=== PATIENT | female | born 1955 | race African-American/Black ===

== ENCOUNTER 2020-04-05 12:51 | Emergency (ER) | payer OTHER, SELFPAY ==
[~2020-04-05] VITALS: Ht 160 cm; Wt 85.0 kg
[2020-04-05] MEDS ORDERED: KETOROLAC 30MG/ML VIAL IV STA (13:26)
[2020-04-05] MEDS ORDERED: SODIUM CHLORIDE 0.9% 1,000 ML IV ONE (13:26)
[2020-04-05] MEDS ORDERED: ONDANSETRON HCL 4MG/2ML INJ IV STA (13:26)
[2020-04-05 13:38] LABS: CLARITY URINE CLEAR (CLEAR); COLOR URINE YELLOW (YELLOW); KETONES URINE NEGATIVE (NEGATIVE); LEUKOCYTE ESTERASE URINE 1+ (NEGATIVE); NITRITE URINE NEGATIVE (NEGATIVE); OCCULT BLOOD URINE 3+ (NEGATIVE); PROTEIN URINE 1+ (NEGATIVE); SPECIFIC GRAVITY URINE 1.017 (1.005-1.030); UROBILINOGEN URINE 0.2 E.U./dL (0.2-1.0)
[2020-04-05 14:12] LABS: BASOPHILS % 0.9 % (0.0-2.0); EOSINOPHILS % 0.2 % (0.0-5.0); HEMATOCRIT. 39.8 % (36.0-48.0); HEMOGLOBIN. 13.2 g/dL (12.0-16.0); LYMPHOCYTES % 12.8 % (20.0-50.0); MEAN CORPUSCULAR HEMOGLOBIN 31.1 pg (28.0-32.0); MEAN CORPUSCULAR VOLUME 93.9 fL (81.0-99.0); MEAN PLATELET VOLUME 8.7 fl (7.4-10.4); MONOCYTES % 5.3 % (2.0-8.0); NEUTROPHILS % 80.8 % (40.0-76.0); PLATELET 311 x1000/uL (130-400); RED BLOOD CELL COUNT 4.24 mill/uL (4.2-5.4)
[2020-04-05 14:14] LABS: CHLORIDE 104 mEq/L (98-107)
[2020-04-05] MEDS ORDERED: LISINOPRIL 40MG TABLET PO ONE (14:30)
[2020-04-05] MEDS ORDERED: AMLODIPINE 10MG TABLET PO ONE (14:30)
[2020-04-05] MEDS ORDERED: METOPROLOL TARTRATE 100MG TABLET PO ONE (14:30)
[2020-04-05 15:02] LABS: PROTHROMBIN TIME 10.8 sec (9.6-11.0)
[2020-04-05] MEDS ORDERED: TAMSULOSIN HCL 0.4MG SR CAPSULE PO ONE (15:45)
[2020-04-05] MEDS ORDERED: NITROFURANTOIN 100MG M/M CAPSULE PO ONE (16:30)
[2020-04-05 16:56] VITALS: BP 177/67
== END 2020-04-05 16:59 | disposition home or self-care (01) ==
LOC: ER 13:05
DX: N13.2 Hydronephrosis with renal and ureteral calculous obstruction (principal); N39.0 Urinary tract infection, site not specified; I10 Essential (primary) hypertension; R11.2 Nausea with vomiting, unspecified; E78.00 Pure hypercholesterolemia, unspecified; Z88.0 Allergy status to penicillin; Z88.6 Allergy status to analgesic agent; Z87.442 Personal history of urinary calculi; Z96.649 Presence of unspecified artificial hip joint
CPT/HCPCS: 36415; 71045; 74176; 80053; 81003; 83690; 85025; 85610; 87086; 93005; 96361; 96374; 96375; 99285; J1885; J2405; J7030